=== PATIENT | female | born 2000 | race Caucasian/White ===

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

== ENCOUNTER 2020-04-04 08:13 | Outpatient (CLI) | payer OTHER ==
[2020-04-04 12:43] LABS: BASOPHILS # (AUTO) 0.03 x10^3/uL (0-0.3); BASOPHILS % (AUTO) 1 % (0-1); EOSINOPHILS # (AUTO) 0.05 x10^3/uL (0-0.8); EOSINOPHILS % (AUTO) 1 % (1-7); LYMPHOCYTES # (AUTO) 1.52 x10^3/uL (1-6.1); LYMPHOCYTES % (AUTO) 27 % (22-44); MD NO; MEAN CORPUSCULAR HGB CONC 33.7 g/dL (32.4-35.8); MEAN PLATELET VOLUME 9.4 fL (7.4-10.4); MONOCYTES # (AUTO) 0.38 x10^3/uL (0-1.4); MONOCYTES % (AUTO) 7 % (2-9); NEUTROPHILS % (AUTO) 65 % (42-75); PLATELET COUNT 267 x10^3/uL (130-400); RED BLOOD COUNT 4.33 x10^6/uL (3.82-5.3); RED CELL DISTRIBUTION WIDTH 12.1 % (9.6-15.2)
== END 2020-04-04 23:59 | disposition home or self-care (01) ==
LOC: CFH 08:13
PROVIDERS: ATTEND Student in an Organized Health Care Education/Training Program
DX: Z34.01 Encounter for supervision of normal first pregnancy, first trimester (principal); Z3A.00 Weeks of gestation of pregnancy not specified
CPT/HCPCS: 36415; 82306; 85025; 86592; 86762; 86803; 86850; 86900; 87086; 87340; 87806; G0475

== ENCOUNTER 2020-09-06 17:22 | Outpatient (CLI) | payer OTHER ==
[~2020-09-06] VITALS: Ht 175.3 cm; Wt 91.3 kg
[2020-09-06 17:32] VITALS: BP 108/57
[2020-09-06 18:44] LABS: AMPHETAMINE SCREEN, URINE Negative (Negative); BARBITURATE SCREEN, URINE Negative (Negative); BENZODIAZEPINE SCREEN, URINE Negative (Negative); CANNABINOID SCREEN, URINE Positive (Negative); COCAINE SCREEN, URINE Negative (Negative); METHADONE SCREEN, URINE Negative (Negative); OPIATE SCREEN, URINE Negative (Negative)
[2020-09-06 19:09] LABS: MICROSCOPIC INDICATED
== END 2020-09-06 20:25 | disposition home or self-care (01) ==
LOC: LDOP 17:22
PROVIDERS: ATTEND Student in an Organized Health Care Education/Training Program
DX: O42.913 Preterm premature rupture of membranes, unspecified as to length of time between rupture and onset of labor, third trimester (principal); Z3A.33 33 weeks gestation of pregnancy
CPT/HCPCS: 59025; 80307; 81001; 84112; 87086

== ENCOUNTER 2020-10-01 19:29 | Outpatient (CLI) | payer OTHER ==
[~2020-10-01] VITALS: Ht 175.3 cm; Wt 95.0 kg
[2020-10-01 19:35] VITALS: BP 107/63
[2020-10-01 20:15] LABS: MICROSCOPIC INDICATED
[2020-10-01 20:17] LABS: AMPHETAMINE SCREEN, URINE Negative (Negative); BARBITURATE SCREEN, URINE Negative (Negative); BENZODIAZEPINE SCREEN, URINE Negative (Negative); CANNABINOID SCREEN, URINE Negative (Negative); COCAINE SCREEN, URINE Negative (Negative); METHADONE SCREEN, URINE Negative (Negative); OPIATE SCREEN, URINE Negative (Negative)
== END 2020-10-01 21:20 | disposition home or self-care (01) ==
LOC: LDOP 19:29
PROVIDERS: ATTEND Student in an Organized Health Care Education/Training Program
DX: O36.8130 Decreased fetal movements, third trimester, not applicable or unspecified (principal); Z3A.36 36 weeks gestation of pregnancy
CPT/HCPCS: 59025; 80307; 81001; 87086

== ENCOUNTER 2020-10-07 10:47 | Inpatient (IN) | payer OTHER ==
[~2020-10-07] VITALS: Ht 175.3 cm; Wt 96.0 kg
[2020-10-07 11:20] LABS: BASOPHILS % (AUTO) 0 % (0-1); EOSINOPHILS % (AUTO) 0 % (1-7); LYMPHOCYTES % (AUTO) 21 % (22-44); MEAN CORPUSCULAR HEMOGLOBIN 28.3 pg (27.0-34.8); MEAN CORPUSCULAR HGB CONC 34.1 g/dL (32.4-35.8); MEAN PLATELET VOLUME 8.7 fL (7.4-10.4); MONOCYTES % (AUTO) 10 % (2-9); NEUTROPHILS % (AUTO) 69 % (42-75); PLATELET COUNT 248 x10^3/uL (130-400); RED BLOOD COUNT 3.73 x10^6/uL (3.82-5.3); RED CELL DISTRIBUTION WIDTH 13.6 % (9.6-15.2)
[2020-10-07 11:21] LABS: MD NO
[2020-10-07 11:28] LABS: MICROSCOPIC INDICATED
[2020-10-07 11:38] LABS: ALANINE AMINOTRANSFERASE 12 U/L (12-78); ALBUMIN 2.9 g/dL (3.4-5.0); ANION GAP 9 mmol/L (5-15); CALCIUM 9.5 mg/dL (8.5-10.1); CHLORIDE 109 mmol/L (98-107); CREATININE 0.62 mg/dL (0.55-1.02)
[2020-10-07 11:41] LABS: ALKALINE PHOSPHATASE 126 U/L (45-117); BILIRUBIN,TOTAL 0.3 mg/dL (0.2-1.0); TOTAL PROTEIN 7.1 g/dL (6.4-8.2)
[2020-10-07 11:47] LABS: BILIRUBIN, DIRECT < 0.1 mg/dL (0.1-0.2)
[2020-10-07] MEDS ORDERED: LIDOCAINE 1%, 20ML ONE (12:49)
[2020-10-07] MEDS ORDERED: NEWBORN KIT ONE (12:49)
[2020-10-07] MEDS ORDERED: MISOPROSTOL 200 MCG TABLET ONE (12:49)
[2020-10-07] MEDS ORDERED: OXYTOCIN 30U/ 0.9% NaCL 500ML 500 ML ONE (12:49)
[2020-10-07] MEDS ORDERED: MISOPROSTOL 25 MCG TABLET ONE ×2 (12:49→17:25)
[2020-10-07] MEDS ORDERED: SODIUM CHLORIDE FLUSH 10ML SYR IVF PRN (13:00)
[2020-10-07] MEDS ORDERED: ALUMINUM/MAG/SIMETHICONE 30 ML UDC PO PRN (13:00)
[2020-10-07] MEDS ORDERED: D5%-LACTATED RINGERS 1,000 ML IV SCH (13:00)
[2020-10-07] MEDS ORDERED: OXYTOCIN 30U/ 0.9% NaCL 500ML 500 ML IV PRN (13:00)
[2020-10-07] MEDS ORDERED: OXYTOCIN 30U/ 0.9% NaCL 500ML 500 ML IV ONE (13:00)
[2020-10-07] MEDS ORDERED: METOCLOPRAMIDE 5 MG/ML, 2ML IVPush PRN (13:00)
[2020-10-07] MEDS ORDERED: TERBUTALINE 1 MG/ML, 1ML IVPush PRN (13:00)
[2020-10-07] MEDS ORDERED: ONDANSETRON 2MG/ML, 2ML IVPush PRN (13:00)
[2020-10-07] MEDS ORDERED: CALCIUM CARBONATE 500 MG TAB.CHEW PO PRN (13:00)
[2020-10-07] MEDS ORDERED: TERBUTALINE 1 MG/ML, 1ML SQ PRN (13:00)
[2020-10-07] MEDS ORDERED: SODIUM CITRATE/CITRIC ACID 30 ML UDC PO PRN (13:00)
[2020-10-07] MEDS: LACTATED RINGERS 1,000 ML IV SCH (13:11)
[2020-10-07] MEDS: MISOPROSTOL 25 MCG TABLET VG PRN ×2 (13:23→17:30)
[2020-10-07] MEDS ORDERED: PLEASE ENTER HEIGHT AND WEIGHT MC SCH (13:30)
[2020-10-07] MEDS ORDERED: FENTANYL PF 100 MCG/2ML ONE ×3 (21:14→23:57)
[2020-10-07] MEDS: FENTANYL PF 100 MCG/2ML IVPush PRN ×2 (21:17→23:42)
[2020-10-07] MEDS ORDERED: FENTANYL/BUPIV./NS/PF 250 ML EPIDCONT ONE (23:20)
[2020-10-07] MEDS ORDERED: BUPIVACAINE 0.25% ONE (23:57)
[2020-10-08] MEDS ORDERED: ONDANSETRON 2MG/ML, 2ML ONE (00:32)
[2020-10-08] MEDS: LACTATED RINGERS 1,000 ML IV SCH ×3 (01:49→10:30)
[2020-10-08] MEDS ORDERED: DIPHENHYDRAMINE 25 MG CAPSULE ONE (04:58)
[2020-10-08] MEDS ORDERED: DIPHENHYDRAMINE 25 MG CAPSULE PO ONE (05:00)
[2020-10-08] MEDS ORDERED: LIDOCAINE/MPF 2%-EPI 1:200K, 20 ML ONE (07:19)
[2020-10-08] MEDS ORDERED: TERBUTALINE 1 MG/ML, 1ML ONE (09:34)
[2020-10-08] MEDS ORDERED: METOCLOPRAMIDE 5 MG/ML, 2ML ONE (10:07)
[2020-10-08] MEDS ORDERED: SODIUM CITRATE/CITRIC ACID 15 ML UDC ONE (10:07)
[2020-10-08] MEDS ORDERED: ACETAMINOPHEN 325 MG TABLET ONE (12:39)
[2020-10-08] MEDS ORDERED: OXYcodone/APAP 5/325MG TABLET ONE (12:39)
[2020-10-08] MEDS ORDERED: OXYcodone/APAP 5/325MG TABLET PO PRN (13:00)
[2020-10-08] MEDS: OXYTOCIN 30U/ 0.9% NaCL 500ML 500 ML IV SCH ×2 (13:00→23:00)
[2020-10-08] MEDS ORDERED: ONDANSETRON 2MG/ML, 2ML IV PRN (13:00)
[2020-10-08] MEDS ORDERED: ACETAMINOPHEN 325 MG TABLET PO ONE (13:00)
[2020-10-08] MEDS ORDERED: SIMETHICONE 80 MG CHEW TAB PO PRN (13:00)
[2020-10-08 13:40] VITALS: BP 92/55
[2020-10-08 16:00] VITALS: BP 94/60
[2020-10-08] MEDS: OXYcodone/APAP 5/325MG TABLET PO PRN ×2 (17:10→21:42)
[2020-10-08] MEDS: IBUPROFEN 600 MG TABLET PO PRN (17:10)
[2020-10-08 19:48] LABS: BASOPHILS % (AUTO) 0 % (0-1); EOSINOPHILS % (AUTO) 0 % (1-7); LYMPHOCYTES % (AUTO) 9 % (22-44); MEAN CORPUSCULAR HEMOGLOBIN 28.1 pg (27.0-34.8); MEAN CORPUSCULAR HGB CONC 33.4 g/dL (32.4-35.8); MEAN PLATELET VOLUME 8.8 fL (7.4-10.4); MONOCYTES % (AUTO) 9 % (2-9); NEUTROPHILS % (AUTO) 82 % (42-75); PLATELET COUNT 203 x10^3/uL (130-400); RED BLOOD COUNT 3.52 x10^6/uL (3.82-5.3); RED CELL DISTRIBUTION WIDTH 13.7 % (9.6-15.2)
[2020-10-08 19:50] LABS: MD NO
[2020-10-08 20:00] VITALS: BP 101/66
[2020-10-08] MEDS: DOCUSATE 100 MG CAPSULE PO PRN (21:42)
[2020-10-09] VITALS: BP 100/61
[2020-10-09] MEDS: IBUPROFEN 600 MG TABLET PO PRN ×2 (02:31→08:38)
[2020-10-09] MEDS: OXYcodone/APAP 5/325MG TABLET PO PRN ×3 (02:31→12:28)
[2020-10-09 04:00] VITALS: BP 95/57
[2020-10-09] MEDS: DOCUSATE 100 MG CAPSULE PO PRN (08:38)
[2020-10-09] MEDS ORDERED: PRENATAL VIT/IRON/FA 1 EACH TABLET PO SCH (09:00)
[2020-10-09 09:01] VITALS: BP 98/62
[2020-10-09] MEDS ORDERED: IBUP-1223 PO (13:32)
== END 2020-10-09 14:57 | disposition home or self-care (01) | DRG 805 ==
LOC: LDOP 10:47 → LDIP 12:42 → 2NW 10-08 13:30
PROVIDERS: ADMIT Student in an Organized Health Care Education/Training Program; ATTEND Student in an Organized Health Care Education/Training Program
PROC: 00HU33Z Insertion of Infusion Device into Spinal Canal, Percutaneous Approach (ICD-10-PCS; 2020-10-07)
PROC: 3E0R3BZ Introduction of Anesthetic Agent into Spinal Canal, Percutaneous Approach (ICD-10-PCS; 2020-10-07)
PROC: 10E0XZZ Delivery of Products of Conception, External Approach (ICD-10-PCS; principal; 2020-10-08)
DX: O26.62 Liver and biliary tract disorders in childbirth (principal); K83.1 Obstruction of bile duct; Z37.0 Single live birth; Z3A.37 37 weeks gestation of pregnancy; J45.909 Unspecified asthma, uncomplicated; O76 Abnormality in fetal heart rate and rhythm complicating labor and delivery; O99.52 Diseases of the respiratory system complicating childbirth; F32.9 Major depressive disorder, single episode, unspecified; Z20.822 Contact with and (suspected) exposure to COVID-19; O99.344 Other mental disorders complicating childbirth; Z80.3 Family history of malignant neoplasm of breast; Z81.8 Family history of other mental and behavioral disorders; Z83.3 Family history of diabetes mellitus; Z91.018 Allergy to other foods
CPT/HCPCS: 36415; 80053; 81001; 82239; 82248; 82570; 84156; 84550; 85025; 86592; 86850; 86900; 87635; G0378; J2405; J3010; J2590; J7120; Q0163